=== PATIENT | female | born 1935 | race Hispanic/Latino ===

== ENCOUNTER → 2017-12-02 | Outpatient (CLI) | payer OTHER ==
[~2017-12-02] MED LIST: ATOR40TA71 PO; BRIM5DRO4; CHOL100018 PO; CYAN250014 PO; LATA2.5D2 OU; LEVO25TA54 PO; METF10004 PO; RIVA20TA PO; SOTA80TA PO; SPIR25TA6 PO; TIMXE255OS OU; VALS1TAB75 PO
== END | disposition home or self-care (01) ==
LOC: SHCH 14:09
PROVIDERS: ATTEND Internal Medicine Cardiovascular Disease
DX: I47.1 Supraventricular tachycardia (principal); I48.91 Unspecified atrial fibrillation; R00.1 Bradycardia, unspecified; I35.1 Nonrheumatic aortic (valve) insufficiency
CPT/HCPCS: 93306